=== PATIENT | female | born 1975 | race Caucasian/White ===

== ENCOUNTER → 2017-05-19 | Outpatient (CLI) | payer OTHER ==
[2017-05-19 12:02] LABS: FREE T4 0.76 NG/DL (0.76-1.46)
[2017-05-19 13:06] LABS: THYROID PEROXIDASE ANTIBODY < 28.0 U/ML (<60.0)
[2017-05-19 13:07] LABS: TOTAL T3 103.4 NG/DL (60.0-181.0)
== END ==
LOC: M LAB 10:44
DX: E03.9 Hypothyroidism, unspecified (principal)
CPT/HCPCS: 84443

== ENCOUNTER → 2017-07-06 | Outpatient (CLI) | payer OTHER | LOC: M RAD 07:07 | DX: R16.0 Hepatomegaly, not elsewhere classified (principal); K76.89 Other specified diseases of liver | CPT/HCPCS: 76705 ==

== ENCOUNTER 2018-05-12 09:50 | Day surgery (SDC) | payer OTHER ==
[~2018-05-12] VITALS: Ht 154.9 cm; Wt 60.8 kg
[~2018-05-12 09:50] MED LIST: AMOX500C PO; AUGM875T28 PO; IBUP-1114 PO; IBUP80TA PO; LEVO75TA4 PO; LR 1,000 ML IV ONE; NICO21PAT TD; NORCOTAB PO; PERC5TAB12 PO; ceFAZolin SOD 1 GM in D5W MINI-BAG PLUS 50 ML IV ONE
[2018-05-12 10:22] LABS: HEMATOCRIT 42.1 % (36.0-47.0); HEMOGLOBIN 14.1 g/dl (12.0-15.5); MEAN CORPUSCULAR HEMOGLOBIN 32.3 pg (27.0-33.0); MEAN CORPUSCULAR HGB CONC 33.5 g/dl (32.0-36.5); MEAN CORPUSCULAR VOLUME 96.6 fl (80.0-96.0); PLATELET COUNT, AUTOMATED 283 10^3/uL (150-450); RED BLOOD COUNT 4.36 10^6/uL (4.00-5.40); WHITE BLOOD COUNT 9.6 10^3/uL (4.0-10.0)
[2018-05-12] MEDS ORDERED: LIDOCAINE 2% INJ 100 MG/5 ML SDV (FOR ANES.) As Ordered ONE (10:50)
[2018-05-12] MEDS ORDERED: PROPOFOL 200 MG/20 ML VIAL As Ordered ONE (10:50)
[2018-05-12] MEDS ORDERED: fentaNYL 250 MCG/5 ML INJECTION (J3010) As Ordered ONE (10:50)
[2018-05-12] MEDS ORDERED: ROCURONIUM BROMIDE 50 MG/5 ML VIAL As Ordered ONE (10:50)
[2018-05-12] MEDS ORDERED: MIDAZOLAM INJ 2 MG/2 ML VIAL (J2250) As Ordered ONE (10:51)
[2018-05-12] MEDS ORDERED: BUPIVACAINE/EPIN 0.25% 30 ML VIAL As Ordered ONE (10:51)
[2018-05-12 10:57] LABS: BLOOD UREA NITROGEN 7 MG/DL (7-18); CALCIUM LEVEL 8.4 MG/DL (8.5-10.1); CARBON DIOXIDE LEVEL 26 MEQ/L (21-32); CHLORIDE LEVEL 108 MEQ/L (98-107); CREATININE FOR GFR 0.67 MG/DL (0.55-1.30); GLOMERULAR FILTRATION RATE > 60.0 (>58); GLUCOSE, FASTING 103 MG/DL (70-100); SODIUM LEVEL 139 MEQ/L (136-145)
[2018-05-12] MEDS ORDERED: dexameTHASONE 4 MG/ML 1ML VIAL (J1100) As Ordered ONE (11:32)
[2018-05-12] MEDS ORDERED: ePHEDrine SULFATE 25 MG/5 ML(5MG/ML) SYRINGE As Ordered ONE (11:38)
[2018-05-12] MEDS ORDERED: METOCLOPRAMIDE INJ 10MG/2ML VIAL (J2765) As Ordered ONE (11:40)
[2018-05-12] MEDS ORDERED: KETOROLAC 60 MG/2 ML VIAL (J1885) As Ordered ONE (11:41)
[2018-05-12] MEDS ORDERED: HYDROmorphone HCL 2 MG/ML 1ML VIAL (J1170) As Ordered ONE (11:41)
[2018-05-12] MEDS ORDERED: ONDANSETRON 4MG/2ML VIAL (J2405) As Ordered ONE (11:42)
[2018-05-12] MEDS ORDERED: BUPIVACAINE HCL 0.25% 30 ML VIAL As Ordered ONE (11:44)
[2018-05-12] MEDS ORDERED: BUPIVACAINE LIPOSOME/PF 1.3% 20ML VIAL (13.3MG/ML)(EXPAREL)(C9290 PER1MG) As Ordered ONE (11:45)
[2018-05-12] MEDS ORDERED: NEOSTIGMINE 10 MG/10 ML VIAL (J2710) As Ordered ONE (12:20)
[2018-05-12] MEDS ORDERED: GLYCOPYRROLATE INJ 0.2 MG/ML 2 ML VIAL As Ordered ONE (12:20)
[2018-05-12] MEDS ORDERED: SUGAMMADEX SODIUM 500 MG/5 ML VIAL (BRIDION) As Ordered ONE (12:40)
[2018-05-12] MEDS ORDERED: HYDROMORPHONE HCL 0.5 MG/ 0.5 ML SYRINGE (J1170 PER 1) As Ordered ONE (13:12)
[2018-05-12] MEDS ORDERED: PERCOCET 5MG/325MG TAB As Ordered ONE (13:12)
--- NOTE | 2018-05-12 13:14 | RO ---
DATE OF PROCEDURE: 05/12/2018 PREOPERATIVE DIAGNOSIS: Incisional hernia. POSTOPERATIVE DIAGNOSIS: Incisional hernia. PROCEDURE: Laparoscopic incisional hernia repair with Ventralight mesh. SURGEON: Dr. Ethan Oglesby [employer]: ANESTHESIA: General endotracheal anesthesia. ESTIMATED BLOOD LOSS: Minimal. FLUIDS: Crystalloid. BRIEF PROCEDURE SUMMARY: The patient was brought to the operating room and was given general anesthesia. After adequate anesthesia and preoperative antibiotics were given, the patient was prepped and draped in the usual sterile fashion. Next, a left upper quadrant incision was made with skin knife and Veress needle placed into the abdominal cavity and insufflated to 15 mm of pressure. A dilating 5 mm trocar was placed at this time and under direct visualization a left lower quadrant 5 mm trocar was placed. There was some omentum that was within the hernia sacs just above the umbilicus and superior to this. This was somewhat of a diastasis in this area as well. In any case, this was taken down with the harmonic scalpel. The falciform ligament was taken down with the harmonic scalpel. Eventually once this was taken down, the 12 mm trocar site was placed at the middle of the incision. This was measured previously and indeed revealed essentially about a 12 x 6 area that I felt needed to be covered adequately and thus a 20 x 15 cm mesh was placed overlying this area. The patient's abdomen was desufflated to 9 mm of pressure and at this time the Ventralight mesh was placed intra-abdominally. Then using Secure Strap circumferentially, this was applied around all the edges and then along the medial aspect of rectus muscle on both sides. Exparel was placed as a TAP block laterally on both sides and additional Marcaine was placed around the incisions. Next, the balloon was removed through the left upper quadrant port. All incisions were closed with #4-0 Vicryl. Steri-Strips and a dry sterile dressing was applied. The patient was awakened, extubated and brought to the recovery room awake, alert and hemodynamically stable. Sponge and needle counts were correct times two.
[2018-05-12] MEDS: HYDROMORPHONE HCL 0.5 MG/ 0.5 ML SYRINGE (J1170 PER 1) IV PRN ×5 (13:15→13:35)
[2018-05-12] MEDS: PERCOCET 5MG/325MG TAB PO PRN ×2 (13:15→13:45)
[2018-05-12] MEDS ORDERED: LR 1,000 ML IV SCH ×2 (13:30)
[2018-05-12] MEDS ORDERED: ONDANSETRON 4MG/2ML VIAL (J2405) IV PRN ×2 (13:30)
[2018-05-12] MEDS ORDERED: PERCOCET 5MG/325MG TAB PO PRN (13:30)
[2018-05-12] MEDS ORDERED: MORPHINE 4 MG/ML 1ML VIAL/SYRINGE (J2270) IV PRN (13:30)
[2018-05-12] MEDS ORDERED: fentaNYL 100 MCG/2 ML INJECTION (J3010) IV PRN (13:30)
[2018-05-12] MEDS ORDERED: LIDOCAINE 1% SDV INJ 30 ML VIAL As Ordered ONE (14:11)
[2018-05-12] MEDS ORDERED: HEPARIN SOD (PORCINE) 5000 UNITS/ML VIAL As Ordered ONE (14:11)
[2018-05-12] MEDS ORDERED: BUPIVACAINE HCL 0.5% 30 ML VIAL As Ordered ONE (14:11)
[2018-05-12] MEDS ORDERED: THROMBIN SOLN 20,000 UNITS KIT As Ordered ONE (14:11)
[2018-05-12 15:15] VITALS: BP 108/61
== END 2018-05-12 15:25 | disposition home or self-care (01) ==
LOC: M SDC 09:50
PROVIDERS: ATTEND Surgery
DX: K43.0 Incisional hernia with obstruction, without gangrene (principal); E05.90 Thyrotoxicosis, unspecified without thyrotoxic crisis or storm; F17.210 Nicotine dependence, cigarettes, uncomplicated; F41.9 Anxiety disorder, unspecified; Z79.899 Other long term (current) drug therapy
CPT/HCPCS: 36415; 49654; 80048; 85027; C1781; C9290; J0690; J1100; J1170; J1885; J2250; J2405; J2765; J3010

== ENCOUNTER 2019-12-28 00:49 | Emergency (ER) | payer OTHER ==
[~2019-12-28] VITALS: Ht 154.9 cm; Wt 53.6 kg
[~2019-12-28 00:49] MED LIST changes: +HYDR-3715 PO; -LR 1,000 ML IV ONE; +NICO21DI3 TD; -NICO21PAT TD; -NORCOTAB PO; -ceFAZolin SOD 1 GM in D5W MINI-BAG PLUS 50 ML IV ONE
[2019-12-28] MEDS ORDERED: SYNT75TA PO (01:22)
[2019-12-28 01:47] LABS: HEMATOCRIT 44.5 % (36.0-47.0); MEAN CORPUSCULAR HEMOGLOBIN 32.9 pg (27.0-33.0); MEAN CORPUSCULAR HGB CONC 33.7 g/dl (32.0-36.5); MEAN CORPUSCULAR VOLUME 97.6 fl (80.0-96.0); PLATELET COUNT, AUTOMATED 318 10^3/uL (150-450); RED BLOOD COUNT 4.56 10^6/uL (4.00-5.40); WHITE BLOOD COUNT 14.1 10^3/uL (4.0-10.0)
[2019-12-28 02:11] LABS: ACETAMINOPHEN LEVEL < 2.0 UG/ML (10.0-30.0); ALBUMIN 3.6 GM/DL (3.2-5.2); ALT/SGPT 19 U/L (12-78); BILIRUBIN,DIRECT 0.1 MG/DL (0.0-0.2); BILIRUBIN,TOTAL 0.3 MG/DL (0.2-1.0); BLOOD UREA NITROGEN 11 MG/DL (7-18); CALCIUM LEVEL 8.4 MG/DL (8.5-10.1); CARBON DIOXIDE LEVEL 23 MEQ/L (21-32); CHLORIDE LEVEL 113 MEQ/L (98-107); CREATININE FOR GFR 0.84 MG/DL (0.55-1.30); ETHYL ALCOHOL (ETHANOL) 0.146 % (0.000-0.010); GLOMERULAR FILTRATION RATE > 60.0 (>58); GLUCOSE, FASTING 102 MG/DL (70-100); POTASSIUM SERUM 3.5 MEQ/L (3.5-5.1); SALICYLATE LEVEL 4.5 MG/DL (5.0-30.0); SODIUM LEVEL 143 MEQ/L (136-145); TOTAL PROTEIN 6.9 GM/DL (6.4-8.2)
[2019-12-28 02:12] LABS: HCG, SERUM QUALITATIVE NEGATIVE (NEGATIVE)
[2019-12-28 02:20] LABS: AMPHETAMINES LEVEL URINE NEGATIVE (NEGATIVE); BARBITURATES URINE NEGATIVE (NEGATIVE); BENZODIAZEPINES URINE NEGATIVE (NEGATIVE); CANNABINOIDS URINE POSITIVE (NEGATIVE); COCAINE METABOLITE URINE POSITIVE (NEGATIVE); METHADONE URINE NEGATIVE (NEGATIVE); OPIATES URINE NEGATIVE (NEGATIVE); PHENCYCLIDINE URINE NEGATIVE (NEGATIVE)
[2019-12-28 08:38] VITALS: BP 120/70
== END 2019-12-28 08:41 | disposition home or self-care (01) ==
LOC: M ED 00:49
DX: F10.229 Alcohol dependence with intoxication, unspecified (principal); Y90.0 Blood alcohol level of less than 20 mg/100 ml; E07.9 Disorder of thyroid, unspecified; F33.9 Major depressive disorder, recurrent, unspecified; F41.9 Anxiety disorder, unspecified; Z79.890 Hormone replacement therapy; F17.210 Nicotine dependence, cigarettes, uncomplicated
CPT/HCPCS: 36415; 80048; 80076; 80307; 84443; 84703; 85027; 99284; G0480

== ENCOUNTER 2021-07-02 07:42 | Inpatient (IN) | payer MEDICAID, OTHER ==
[~2021-07-02] VITALS: Ht 162.6 cm; Wt 60.3 kg
[~2021-07-02 07:42] MED LIST changes: +SYNT75TA PO
[2021-07-02 09:11] LABS: HEMATOCRIT 40.7 % (36.0-47.0); HEMOGLOBIN 13.8 g/dl (12.0-15.5); MEAN CORPUSCULAR HEMOGLOBIN 31.4 pg (27.0-33.0); MEAN CORPUSCULAR HGB CONC 33.9 g/dl (32.0-36.5); MEAN CORPUSCULAR VOLUME 92.7 fl (80.0-96.0); PLATELET COUNT, AUTOMATED 292 10^3/uL (150-450); RED BLOOD COUNT 4.39 10^6/uL (4.00-5.40); WHITE BLOOD COUNT 12.8 10^3/uL (4.0-10.0)
[2021-07-02 09:41] LABS: AMPHETAMINES LEVEL URINE POSITIVE (NEGATIVE); BARBITURATES URINE NEGATIVE (NEGATIVE); BENZODIAZEPINES URINE NEGATIVE (NEGATIVE); CANNABINOIDS URINE POSITIVE (NEGATIVE); COCAINE METABOLITE URINE NEGATIVE (NEGATIVE); METHADONE URINE NEGATIVE (NEGATIVE); OPIATES URINE NEGATIVE (NEGATIVE); PHENCYCLIDINE URINE NEGATIVE (NEGATIVE)
[2021-07-02 09:44] LABS: HCG, SERUM QUALITATIVE NEGATIVE (NEGATIVE)
[2021-07-02 09:55] LABS: ACETAMINOPHEN LEVEL < 2.0 UG/ML (10.0-30.0); ALBUMIN 4.6 GM/DL (3.2-5.2); ALT/SGPT 29 U/L (12-78); BILIRUBIN,DIRECT 0.2 MG/DL (0.0-0.2); BILIRUBIN,TOTAL 1.2 MG/DL (0.2-1.0); BLOOD UREA NITROGEN 7 MG/DL (7-18); CALCIUM LEVEL 9.4 MG/DL (8.5-10.1); CARBON DIOXIDE LEVEL 27 MEQ/L (21-32); CHLORIDE LEVEL 104 MEQ/L (98-107); CREATININE FOR GFR 0.76 MG/DL (0.55-1.30); ETHYL ALCOHOL (ETHANOL) < 0.003 % (0.000-0.010); GLOMERULAR FILTRATION RATE > 60.0 (>58); GLUCOSE, FASTING 113 MG/DL (70-100); POTASSIUM SERUM 3.2 MEQ/L (3.5-5.1); SALICYLATE LEVEL 5.2 MG/DL (5.0-30.0); SODIUM LEVEL 138 MEQ/L (136-145); TOTAL PROTEIN 7.8 GM/DL (6.4-8.2)
[2021-07-02 10:21] LABS: RSV AMPLIFICATION NEGATIVE (NEGATIVE)
[2021-07-02] MEDS ORDERED: POTASSIUM CHLORIDE 10MEQ SR TABLET PO ONE (10:30)
[2021-07-02] MEDS ORDERED: FISH1000 PO (14:08)
[2021-07-02] MEDS ORDERED: BUPR75TA5 PO (14:08)
[2021-07-02] MEDS ORDERED: VITMTA PO (14:08)
[2021-07-02] MEDS ORDERED: SERT25TA21 PO (14:08)
[2021-07-02] MEDS ORDERED: ZOLO100T PO (14:08)
[2021-07-02] MEDS ORDERED: HOME MED LIST COMPLETE! XX SCH (14:10)
[2021-07-02] MEDS ORDERED: IBUPROFEN 400MG TAB PO PRN (18:05)
[2021-07-02] MEDS ORDERED: MAALOX 30 ML SUSP *UDC PO PRN (18:05)
[2021-07-02] MEDS ORDERED: MOM 30ML SUSPENSION UDC PO PRN (18:05)
[2021-07-02 21:22] VITALS: BP 121/76
[2021-07-03 06:00] VITALS: BP 128/62
[2021-07-03] MEDS: NICOTINE 21MG/24HR 1 EA TRANSDERMAL TD SCH (09:00)
[2021-07-03] MEDS: LEVOTHYROXINE 75MCG TABLET (0.075MG) PO SCH (12:32)
[2021-07-03] MEDS: SERTRALINE HCL 25 MG TABLET PO SCH (12:33)
[2021-07-03] MEDS: SERTRALINE 100 MG TAB PO SCH (12:33)
[2021-07-03] MEDS: traZODone 50 MG TAB PO PRN (22:40)
[2021-07-03] MEDS: OLANZapine ORAL DISINTEGRATING TAB 5MG PO PRN (22:41)
[2021-07-04] MEDS: LEVOTHYROXINE 75MCG TABLET (0.075MG) PO SCH (06:00)
[2021-07-04] MEDS: SERTRALINE 100 MG TAB PO SCH (09:00)
[2021-07-04] MEDS: SERTRALINE HCL 25 MG TABLET PO SCH (09:00)
[2021-07-04] MEDS: NICOTINE 21MG/24HR 1 EA TRANSDERMAL TD SCH (09:00)
[2021-07-04 16:25] VITALS: BP 134/63
[2021-07-04] MEDS: OLANZapine 5 MG TAB PO SCH (21:00)
[2021-07-05] MEDS: LEVOTHYROXINE 75MCG TABLET (0.075MG) PO SCH (06:00)
[2021-07-05] MEDS: SERTRALINE HCL 25 MG TABLET PO SCH (09:00)
[2021-07-05] MEDS: SERTRALINE 100 MG TAB PO SCH (09:00)
[2021-07-05] MEDS: OLANZapine 5 MG TAB PO SCH ×2 (09:00→21:22)
[2021-07-05] MEDS: NICOTINE 21MG/24HR 1 EA TRANSDERMAL TD SCH (09:00)
[2021-07-05 16:15] VITALS: BP 114/65
[2021-07-05] MEDS: OLANZapine ORAL DISINTEGRATING TAB 5MG PO PRN (16:41)
[2021-07-05 16:59] LABS: HEMATOCRIT 41.3 % (36.0-47.0); HEMOGLOBIN 13.9 g/dl (12.0-15.5); MEAN CORPUSCULAR HEMOGLOBIN 32.4 pg (27.0-33.0); MEAN CORPUSCULAR HGB CONC 33.7 g/dl (32.0-36.5); MEAN CORPUSCULAR VOLUME 96.3 fl (80.0-96.0); PLATELET COUNT, AUTOMATED 299 10^3/uL (150-450); RED BLOOD COUNT 4.29 10^6/uL (4.00-5.40); WHITE BLOOD COUNT 10.3 10^3/uL (4.0-10.0)
[2021-07-05 17:27] LABS: ALBUMIN 4.3 GM/DL (3.2-5.2); ALT/SGPT 58 U/L (12-78); BILIRUBIN,TOTAL 1.3 MG/DL (0.2-1.0); BLOOD UREA NITROGEN 12 MG/DL (7-18); CARBON DIOXIDE LEVEL 27 MEQ/L (21-32); CHLORIDE LEVEL 105 MEQ/L (98-107); CREATININE FOR GFR 0.85 MG/DL (0.55-1.30); GLOMERULAR FILTRATION RATE > 60.0 (>58); GLUCOSE, FASTING 85 MG/DL (70-100); MAGNESIUM LEVEL 2.5 MG/DL (1.8-2.4); POTASSIUM SERUM 3.4 MEQ/L (3.5-5.1); SODIUM LEVEL 140 MEQ/L (136-145); TOTAL PROTEIN 7.7 GM/DL (6.4-8.2)
[2021-07-05 18:51] VITALS: BP 230/84
[2021-07-05] MEDS: DOCUSATE SODIUM 100MG CAPSULE PO SCH (21:22)
[2021-07-06] MEDS: LEVOTHYROXINE 75MCG TABLET (0.075MG) PO SCH (06:11)
[2021-07-06 06:25] VITALS: BP 104/55
[2021-07-06] MEDS ORDERED: POTASSIUM CHLORIDE 10MEQ SR TABLET PO ONE (07:05)
[2021-07-06 08:14] LABS: ALBUMIN 3.7 GM/DL (3.2-5.2); ALT/SGPT 47 U/L (12-78); BILIRUBIN,TOTAL 0.8 MG/DL (0.2-1.0); BLOOD UREA NITROGEN 11 MG/DL (7-18); CALCIUM LEVEL 8.7 MG/DL (8.5-10.1); CARBON DIOXIDE LEVEL 27 MEQ/L (21-32); CHLORIDE LEVEL 106 MEQ/L (98-107); CREATININE FOR GFR 0.72 MG/DL (0.55-1.30); GLOMERULAR FILTRATION RATE > 60.0 (>58); GLUCOSE, FASTING 112 MG/DL (70-100); SODIUM LEVEL 140 MEQ/L (136-145); TOTAL PROTEIN 7.1 GM/DL (6.4-8.2)
[2021-07-06] MEDS: DOCUSATE SODIUM 100MG CAPSULE PO SCH ×2 (08:20→20:16)
[2021-07-06] MEDS: NICOTINE 21MG/24HR 1 EA TRANSDERMAL TD SCH (08:20)
[2021-07-06] MEDS: SERTRALINE 100 MG TAB PO SCH (08:23)
[2021-07-06] MEDS: SERTRALINE HCL 25 MG TABLET PO SCH (08:23)
[2021-07-06] MEDS: OLANZapine 5 MG TAB PO SCH ×2 (08:23→20:16)
[2021-07-06 16:08] VITALS: BP 117/56
[2021-07-06] MEDS: hydrOXYzine 50 MG TAB PO PRN (20:16)
[2021-07-06] MEDS: traZODone 50 MG TAB PO PRN (20:16)
[2021-07-07] MEDS: LEVOTHYROXINE 75MCG TABLET (0.075MG) PO SCH (06:01)
[2021-07-07 06:29] VITALS: BP 125/56
[2021-07-07] MEDS: NICOTINE 21MG/24HR 1 EA TRANSDERMAL TD SCH (09:00)
[2021-07-07] MEDS: SERTRALINE HCL 25 MG TABLET PO SCH (09:35)
[2021-07-07] MEDS: OLANZapine 5 MG TAB PO SCH ×2 (09:35→20:33)
[2021-07-07] MEDS: SERTRALINE 100 MG TAB PO SCH (09:35)
[2021-07-07] MEDS: DOCUSATE SODIUM 100MG CAPSULE PO SCH ×2 (09:35→20:33)
[2021-07-07 11:30] LABS: PROLACTIN 6.9 NG/ML
[2021-07-07 12:25] LABS: BLOOD UREA NITROGEN 9 MG/DL (7-18); CALCIUM LEVEL 8.8 MG/DL (8.5-10.1); CARBON DIOXIDE LEVEL 29 MEQ/L (21-32); CHLORIDE LEVEL 109 MEQ/L (98-107); CREATININE FOR GFR 0.83 MG/DL (0.55-1.30); GLOMERULAR FILTRATION RATE > 60.0 (>58); GLUCOSE, FASTING 100 MG/DL (70-100); SODIUM LEVEL 141 MEQ/L (136-145)
[2021-07-07 12:26] LABS: POTASSIUM SERUM 3.9 MEQ/L (3.5-5.1)
[2021-07-07 17:43] VITALS: BP 126/84
[2021-07-07] MEDS: traZODone 50 MG TAB PO PRN (20:34)
[2021-07-07] MEDS: hydrOXYzine 50 MG TAB PO PRN (22:57)
[2021-07-08] MEDS: LEVOTHYROXINE 75MCG TABLET (0.075MG) PO SCH (05:46)
[2021-07-08 06:00] VITALS: BP 92/62
[2021-07-08] MEDS: NICOTINE 21MG/24HR 1 EA TRANSDERMAL TD SCH (09:00)
[2021-07-08] MEDS: DOCUSATE SODIUM 100MG CAPSULE PO SCH (09:32)
[2021-07-08] MEDS: SERTRALINE 100 MG TAB PO SCH (09:33)
[2021-07-08] MEDS: SERTRALINE HCL 25 MG TABLET PO SCH (09:33)
[2021-07-08] MEDS: OLANZapine 5 MG TAB PO SCH (09:33)
[2021-07-08] MEDS ORDERED: LEVO75TA4 PO (11:19)
[2021-07-08] MEDS ORDERED: SERT25TA21 PO (11:19)
[2021-07-08] MEDS ORDERED: COLA100C5 PO (11:19)
[2021-07-08] MEDS ORDERED: OLAN1TAB16 PO (11:19)
[2021-07-08] MEDS ORDERED: ZOLO100T PO (11:19)
[2021-07-08] MEDS ORDERED: TRAZ-252 PO (11:19)
[2021-07-08] MEDS ORDERED: BENZ0.5T23 PO (11:19)
[2021-07-14] MEDS ORDERED: OLAN1TAB20 PO (10:05)
== END 2021-07-08 11:52 | disposition home or self-care (01) | DRG 776 ==
LOC: M ED 07:42 → M ED INP 18:02 → M PSY 21:05
PROVIDERS: ADMIT Student in an Organized Health Care Education/Training Program; ATTEND Student in an Organized Health Care Education/Training Program
DX: F12.159 Cannabis abuse with psychotic disorder, unspecified (principal); E03.9 Hypothyroidism, unspecified; F17.200 Nicotine dependence, unspecified, uncomplicated; Z79.899 Other long term (current) drug therapy; Z20.822 Contact with and (suspected) exposure to COVID-19; F31.9 Bipolar disorder, unspecified; F41.9 Anxiety disorder, unspecified; F43.10 Post-traumatic stress disorder, unspecified

== ENCOUNTER 2021-08-19 20:23 | Emergency (ER) | payer MEDICAID, OTHER ==
[~2021-08-19] VITALS: Ht 154.9 cm; Wt 66.9 kg
[2021-08-19 20:23] VITALS: BP 126/65
[~2021-08-19 20:23] MED LIST changes: +BENZ0.5T23 PO; +BUPR75TA5 PO; +COLA100C5 PO; +FISH1000 PO; +OLAN1TAB16 PO; +OLAN1TAB20 PO; +SERT25TA21 PO; +TRAZ-252 PO; +VITMTA PO; +ZOLO100T PO
== END 2021-08-19 23:11 | disposition left against medical advice (07) ==
LOC: M ED 20:23
DX: Z53.21 Procedure and treatment not carried out due to patient leaving prior to being seen by health care provider (principal)